=== PATIENT | male | born 1950 | race Caucasian/White ===

== ENCOUNTER 2018-09-16 15:33 | Emergency (ER) | payer MEDICARE ==
[~2018-09-16] VITALS: Ht 172.7 cm; Wt 79.5 kg
[2018-09-16] MEDS ORDERED: NAPROSYN500 MG PO (16:24)
[2018-09-16 17:00] VITALS: BP 121/60
== END 2018-09-16 17:01 | disposition home or self-care (01) ==
LOC: ED 15:33
DX: S93.401A Sprain of unspecified ligament of right ankle, initial encounter (principal); I10 Essential (primary) hypertension; W11.XXXA Fall on and from ladder, initial encounter; Y92.009 Unspecified place in unspecified non-institutional (private) residence as the place of occurrence of the external cause